=== PATIENT | female | born 2000 | race Caucasian/White ===

== ENCOUNTER 2021-09-09 20:41 | Emergency (ER) | payer OTHER ==
[~2021-09-09] VITALS: Ht 160 cm; Wt 59.0 kg
--- NOTE | 2021-09-09 21:19 | ED GU-Female ---
General Chief Complaint: OB < 20 WEEKS Stated Complaint: 6 WKS PREG - BLEEDING Nursing Triage Note: PT AMBULATE TO ROOM 03 WITH C/O VAGINAL BLEEDING X2 HOURS. PT REPORTS SHE IS X6 WEEKS . PT STATES SHE HAD A DOCTOR'S APPT TODAY AND BLOOD TEST CONFIRMED . Source: patient History of Present Illness Date Seen by Provider: Sep 09, 2021 Time Seen by Provider: 20:55 Initial Comments PT ARRIVES VIA POV FROM HOME STATES SHE IS 6 WEEKS WITH LMP 07/27/22 HAD ROUTINE FIRST VISIT TODAY AND LAB DONE--NO PELVIC EXAM OR ULTRASOUND DONE TODAY BEGAN HAVING VAGINAL BLEEDING 2 HOURS AGO NO CRAMPING NO NAUSEA/VOMITING NO URINARY SYMPTOMS PT HAS NOT USED ANY PADS OR TAMPONS, AND IS NOT WEARING ANYTHING NOW. DENIES FEVER OR RECENT ILLNESS--TEMP IS 99.6 ON ARRIVAL HERE--PT DOES NOT FEEL LIKE SHE HAS FEVER DENIES ANY OTHER SYMPTOMS PT IS NOT VACCINATED FOR COVID-19 OR FLU PCP: [facility] Allergies and Home Medications Allergies Coded Allergies: Penicillins (Verified Allergy, Unknown, 09/09/21) Patient Home Medication List Home Medication List Reviewed: Yes Review of Systems Review of Systems Constitutional: no symptoms reported EENTM: no symptoms reported Respiratory: no symptoms reported Cardiovascular: no symptoms reported Gastrointestinal: no symptoms reported Genitourinary: see HPI : Yes LMP: Jul 27, 2021 Musculoskeletal: no symptoms reported Skin: no symptoms reported Psychiatric/Neurological: No Symptoms Reported Endocrine: No Symptoms Reported Hematologic/Lymphatic: No Symptoms Reported Past Tzroifp-Yhmxvy-[place] Hx Patient Social History Tobacco Use?: No Smoking Status: Never a Smoker Smokeless Tobacco Frequency: Never a User Use of E-Cig and/or Vaping Robert: Never a User Substance use?: No Alcohol Use?: No Pt feels they are or have been: No Past Medical History Last Menstrual Period: Jul 27, 2021 Physical Exam Vital Signs Vital Signs - First Documented 09/09/21 09/09/21 20:46 23:02 Temp 37.6 Pulse 101 Resp 21 B/P (MAP) 124/81 (95) Pulse Ox 100 O2 Delivery Room Air Capillary Refill : Less Than 3 Seconds Height, Weight, BMI Height: '" Weight: lbs. oz. kg; 23.00 BMI Method: General Appearance: WD/WN, no apparent distress, other (WALKS UPRIGHT AND MOVES WITHOUT DIFFICULTY) Cardiovascular: regular rate, rhythm, no edema, no murmur Respiratory: normal breath sounds, no respiratory distress Gastrointestinal: non tender, soft Pelvic: other (NO VAGINAL BLEEDING AT THIS TIME. ) Back: no CVA tenderness Extremities: normal inspection Neurologic/Psychiatric: no motor/sensory deficits, alert, normal mood/affect Skin: normal color, warm/dry Progress/Results/Core Measures Suspected Sepsis SIRS Temperature: Pulse: 101 Respiratory Rate: 21 Laboratory Tests 09/09/21 21:19: White Blood Count 11.4H Blood Pressure 124 /81 Mean: 95 Laboratory Tests 09/09/21 21:19: Platelet Count 317 Results/Orders Lab Results Laboratory Tests Test 09/09/21 21:05 09/09/21 21:19 Range/Units Influenza Type A (RT-PCR) Not Detected Not Detecte Influenza Type B (RT-PCR) Not Detected Not Detecte SARS-CoV-2 RNA (RT-PCR) Not Detected Not Detecte White Blood Count 11.4 H 4.3-11.0 10^3/uL Red Blood Count 4.00 3.80-5.11 10^6/uL Hemoglobin 12.1 11.5-16.0 g/dL Hematocrit 36 35-52 % Mean Corpuscular Volume 90 80-99 fL Mean Corpuscular Hemoglobin 30 25-34 pg Mean Corpuscular Hemoglobin Concent 34 32-36 g/dL Red Cell Distribution Width 11.8 10.0-14.5 % Platelet Count 317 130-400 10^3/uL Mean Platelet Volume 9.8 9.0-12.2 fL Human Chorionic Gonadotropin, Quant 08093 H <5 MIU/ML My Orders Orders - LELE HER DO Cbc No Diff (09/09/21 20:55) Hcg,Quantitative (09/09/21 20:55) Abo Rh Type (09/09/21 20:55) Covid 19 Inhouse Test (09/09/21 20:55) Influenza A And B By Pcr (09/09/21 20:55) Isolation Central Supply Req (09/09/21 20:55) Vital Signs/I&O 09/09/21 09/09/21 20:46 23:02 Temp 37.6 Pulse 101 73 Resp 21 16 B/P (MAP) 124/81 (95) 126/73 Pulse Ox 100 O2 Delivery Room Air Room Air Capillary Refill : Less Than 3 Seconds Blood Pressure Mean: 95 Progress Note : Progress Note PPE WORN COVID-19 TESTING DONE DUE TO TEMP OF 99.6 BLOOD TYPE A+ DID NOT HAVE ANY BLEEDING DURING ER STAY, AND DID NOT WEAR ANY PADS / PANTILINERS OR USE ANY TAMPONS DURING ER STAY PT VOIDED PRIOR TO DISMISSAL AND NO BLOOD AT ALL. ANTICIPATED COURSE REVIEWED WITH PT AND MALE IN ROOM ALSO DISCUSSED NEED FOR RETESTING FOR COVID IN 2-3 DAYS Departure Impression Primary Impression: Threatened in early Additional Impression: Person under investigation for COVID-19 Disposition: HOME, SELF-CARE Condition: Stable Departure-Patient Inst. Decision time for Depature: 22:51 Referrals: DIANE QUINN LISA A MD (PCP/Family) Primary Care Physician Patient Instructions: COVID-19 Tests, Threatened Miscarriage (DC) Add. Discharge Instructions: NOTHING IN VAGINA--NO TAMPONS, DOUCHING OR INTERCOURSE KEEP AN ACCURATE PAD COUNT--RETURN IF SOAKING MORE THAN 1 MAXI PAD AN HOUR TYLENOL NEEDED FOR PAIN--NO ASPIRIN, NO MOTRIN/ADVIL/IBUPROFEN OR ALEVE/NAPROXEN FOLLOW UP WITH DR. QUINN THIS WEEK FOR FURTHER CARE--CALL IN THE MORNING TO SCHEDULE APPOINTMENT QUARANTINE YOURSELF AND CLOSE CONTACTS UNTIL YOU ARE RECHECKED AND CLEARED, AND YOU NEED TO BE RECHECKED FOR COVID IN 2-3 DAYS--YOU MAY GO TO [facility] OR YOUR [facility] DEPARTMENT All discharge instructions reviewed with patient and/or family. Voiced understanding. LELE HER DO Sep 09, 2021 21:19
[2021-09-09 21:37] LABS: HEMATOCRIT 36 % (35-52); HEMOGLOBIN 12.1 g/dL (11.5-16.0); MEAN CORPUSCULAR HEMOGLOBIN 30 pg (25-34); MEAN CORPUSCULAR HGB CONC 34 g/dL (32-36); MEAN CORPUSCULAR VOLUME 90 fL (80-99); MEAN PLATELET VOLUME 9.8 fL (9.0-12.2); PLATELET COUNT 317 10^3/uL (130-400); WHITE BLOOD COUNT 11.4 10^3/uL (4.3-11.0)
[2021-09-09 23:02] VITALS: BP 126/73
== END 2021-09-09 23:02 | disposition home or self-care (01) ==
LOC: EDUNIT# 20:41 → ER 20:43
DX: O20.0 Threatened abortion (principal); Z20.822 Contact with and (suspected) exposure to COVID-19; Z3A.00 Weeks of gestation of pregnancy not specified
CPT/HCPCS: 36415; 84702; 85027; 86900; 86901; 87636; 99283

== ENCOUNTER 2022-05-04 18:46 | Inpatient (IN) | payer OTHER ==
[~2022-05-04] VITALS: Ht 160 cm; Wt 86.5 kg
[2022-05-04] VITALS (14 sets, daily range): BP systolic 141–184; BP diastolic 82–103
[2022-05-04] MEDS ORDERED: LIDOCAINE 1% INJ 20 ML VIAL IJ PRN (19:15)
[2022-05-04] MEDS ORDERED: MINERAL OIL 30 ML UDC TOP PRN (19:15)
[2022-05-04] MEDS ORDERED: TERBUTALINE INJ 1 MG/ML (BRETHINE) AMP SC PRN (19:15)
[2022-05-04] MEDS ORDERED: D5 LR IV SOLUTION 1,000 ML IV SCH (19:15)
[2022-05-04 19:43] LABS: BASOPHILS % (AUTO) 0 % (0-10); EOSINOPHILS # (AUTO) 0.1 10^3/uL (0.0-0.3); EOSINOPHILS % (AUTO) 1 % (0-10); HEMATOCRIT 33 % (35-52); HEMOGLOBIN 11.2 g/dL (11.5-16.0); LYMPHOCYTES # (AUTO) 1.3 10^3/uL (1.0-4.0); LYMPHOCYTES % (AUTO) 15 % (12-44); MEAN CORPUSCULAR HEMOGLOBIN 31 pg (25-34); MEAN CORPUSCULAR HGB CONC 34 g/dL (32-36); MEAN CORPUSCULAR VOLUME 92 fL (80-99); MEAN PLATELET VOLUME 11.3 fL (9.0-12.2); MONOCYTES # (AUTO) 0.9 10^3/uL (0.0-1.0); MONOCYTES % (AUTO) 10 % (0-12); NEUTROPHILS # (AUTO) 6.3 10^3/uL (1.8-7.8); NEUTROPHILS % (AUTO) 72 % (42-75); PLATELET COUNT 233 10^3/uL (130-400); WHITE BLOOD COUNT 8.8 10^3/uL (4.3-11.0)
[2022-05-04] MEDS ORDERED: D5 LR IV SOLUTION 1,000 ML IV ONE (19:51)
[2022-05-04] MEDS ORDERED: CATHETER FLUSH 10 ML SYR IV SCH ×2 (22:00)
[2022-05-04] MEDS ORDERED: hydrALAZINE (APESOLINE) 20 MG/ML VIAL ONE (22:12)
[2022-05-04] MEDS ORDERED: hydrALAZINE (APESOLINE) 20 MG/ML VIAL IV ONE (22:15)
[2022-05-04] MEDS ORDERED: BUTORPHANOL INJ 2 MG/ML (STADOL) VIAL ONE (22:38)
[2022-05-04] MEDS ORDERED: BUTORPHANOL INJ 2 MG/ML (STADOL) VIAL IV ONE (22:45)
[2022-05-04 23:03] LABS: ALBUMIN 3.3 GM/DL (3.2-4.5); POTASSIUM 2.8 MMOL/L (3.6-5.0)
[2022-05-04 23:04] LABS: CALCIUM 9.2 MG/DL (8.5-10.1)
[2022-05-04 23:07] LABS: BILIRUBIN,TOTAL 0.3 MG/DL (0.1-1.0)
[2022-05-04 23:09] LABS: CREATININE SERUM 0.64 MG/DL (0.60-1.30)
[2022-05-04 23:12] LABS: URIC ACID 3.5 MG/DL (2.6-7.2)
[2022-05-04 23:16] LABS: URINE CREATININE FOR RATIO 20 MG/DL (30-125)
[2022-05-04 23:17] LABS: URINE PROTEIN FOR RATIO ONLY < 6 MG/DL (6-12)
[2022-05-05] VITALS (34 sets, daily range): BP systolic 128–177; BP diastolic 67–103
[2022-05-05] MEDS ORDERED: fentaNYL 2 mcg/ml BUPIVA 0.125 100 ML ONE (00:02)
[2022-05-05] MEDS ORDERED: fentaNYL INJ 100 MCG/2 ML AMP ONE (00:45)
[2022-05-05] MEDS ORDERED: LIDOCAINE PF 2% 5 ML (XYLOCAINE) VIAL ONE (00:45)
[2022-05-05] MEDS ORDERED: BUPIVACAINE 0.25% 30 ML (SENSORCAINE) VIAL ONE (00:45)
[2022-05-05] MEDS ORDERED: fentaNYL 2 mcg/ml BUPIVA 0.125 100 ML EPI SCH (01:30)
[2022-05-05] MEDS ORDERED: METOCLOPRAMIDE INJ 10 MG/2 ML (REGLAN) IV PRN (01:30)
[2022-05-05] MEDS ORDERED: diphenhydrAMINE 50 MG/ML INJ (BENADRYL) IV PRN (01:30)
[2022-05-05] MEDS ORDERED: ONDANSETRON 4 MG/2 ML (SDV) Z0FRAN IV PRN (01:30)
[2022-05-05] MEDS ORDERED: NALOXONE 0.4 MG/ML 1 ML (NARCAN) VIAL IV PRN ×2 (01:30)
[2022-05-05] MEDS ORDERED: LACTATED RINGERS 1,000 ML IV SCH (01:30)
[2022-05-05] MEDS ORDERED: OXYTOCIN PRE-MIX DRIP 500 ML IV ONE ×2 (03:24→06:32)
[2022-05-05] MEDS ORDERED: LIDOCAINE 1% INJ 10 ML VIAL ONE ×2 (03:26→05:52)
--- NOTE | 2022-05-05 04:22 | History & Physical-OB ---
OB - Chief Complaint & HPI Date/Time Date of Admission: Date of Admission: May 04, 2022 at 18:46 Date seen by a Provider: May 05, 2022 Time Seen by a Provider: 04:00 Chief Complaint/History OB-Reason for Admission/Chief: Induction of Labor Hx : 1 Expected Date of Delivery: May 01, 2022 Gestational Age in Weeks: 40 Gestational Age in Days: 3 History of Labs A+, Ab neg, Rub Imm HIV/RPR/HepB/C NR Normal 1hr GTT GBS neg Allergies and Home Medications Allergies Coded Allergies: Penicillins (Verified Allergy, Unknown, 09/09/21) Patient Home Medication List Home Medication List Reviewed: Yes OB - History Hx of Present Care: Yes Ultrasounds: Normal mid trimester US Obstetrical Complications: None Medical Complications: None Obstetrical History Hx : 1 Patient Past Medical History N/a Social History/Family History Alcohol Use: Denies Use Smoking Cessation: Never smoker Immunizations Influenza Vaccine Up-to-Date: No; Not Current Tetanus Booster (TDap): Less than 5yrs (02/25/22) Rubella: immune RPR/VDRL: Negative GBS Status: Negative HBsAG: Negative OB - Admission Exam Physical Exam Vitals: Vital Signs 05/04/22 05/05/22 20:04 02:30 Temp 36.5 Pulse 71 Resp 18 B/P (MAP) 142/92 (109) Pulse Ox 97 O2 Delivery Room Air HEENT: NCAT Heart: Rhythm Normal Lungs: Clear Abdomen: Gravid Cervical Dilatation: 9cm Effacement: 100% Station: 0 Membranes: Ruptured Amniotic Fluid: Clear Heart Rate: 130's Accelerations: Accelerations Present Decelerations: Variable Decelerations Short Term Variability: Present Assistant Branch Operations Manager Variability: Average (6-25) Contractions on Admission: < 5 Minutes Apart Angel Scoring Tool (Modified) Dilation (cm): 3-4cm (2) Effacement (%): 51-79% (2) Descent/Station: -2 (1) Cervix Consistency: Medium(1) Cervix Position: Anterior (2) Angel Score: 8 Labs Laboratory Tests Test 05/04/22 19:25 Range/Units White Blood Count 8.8 4.3-11.0 10^3/uL Red Blood Count 3.59 L 3.80-5.11 10^6/uL Hemoglobin 11.2 L 11.5-16.0 g/dL Hematocrit 33 L 35-52 % Mean Corpuscular Volume 92 80-99 fL Mean Corpuscular Hemoglobin 31 25-34 pg Mean Corpuscular Hemoglobin Concent 34 32-36 g/dL Red Cell Distribution Width 12.8 10.0-14.5 % Platelet Count 233 130-400 10^3/uL Mean Platelet Volume 11.3 9.0-12.2 fL Immature Granulocyte % (Auto) 2 % Neutrophils (%) (Auto) 72 42-75 % Lymphocytes (%) (Auto) 15 12-44 % Monocytes (%) (Auto) 10 0-12 % Eosinophils (%) (Auto) 1 0-10 % Basophils (%) (Auto) 0 0-10 % Neutrophils # (Auto) 6.3 1.8-7.8 10^3/uL Lymphocytes # (Auto) 1.3 1.0-4.0 10^3/uL Monocytes # (Auto) 0.9 0.0-1.0 10^3/uL Eosinophils # (Auto) 0.1 0.0-0.3 10^3/uL Basophils # (Auto) 0.0 0.0-0.1 10^3/uL Immature Granulocyte # (Auto) 0.2 H 0.0-0.1 10^3/uL Urine Protein < 6 L 6-12 MG/DL Urine Creatinine 20 L 30-125 MG/DL Urine Protein/Creatinine Ratio Sodium Level 139 135-145 MMOL/L Potassium Level 2.8 L 3.6-5.0 MMOL/L Chloride Level 107 98-107 MMOL/L Carbon Dioxide Level 20 L 21-32 MMOL/L Anion Gap 12 5-14 MMOL/L Blood Urea Nitrogen 5 L 7-18 MG/DL Creatinine 0.64 0.60-1.30 MG/DL Estimat Glomerular Filtration Rate 127 BUN/Creatinine Ratio 8 Glucose Level 89 70-105 MG/DL Uric Acid 3.5 2.6-7.2 MG/DL Calcium Level 9.2 8.5-10.1 MG/DL Corrected Calcium 9.8 8.5-10.1 MG/DL Total Bilirubin 0.3 0.1-1.0 MG/DL Aspartate Amino Transf (AST/SGOT) 18 5-34 U/L Alanine Aminotransferase (ALT/SGPT) 14 0-55 U/L Alkaline Phosphatase 86 40-136 U/L Lactate Dehydrogenase 216 125-220 U/L Total Protein 6.0 L 6.4-8.2 GM/DL Albumin 3.3 3.2-4.5 GM/DL OB - Assessment/Plan/Diagnosis Assessment Assessment: induction of labor Admission Dx Third Trimester 40 week gestation Admission Status: Inpatient Order (span 2 midnights) Reason for Inpatient Admission: Labor and post care Plan Plan: Induction Other Plan 22 yo G1 @ 40.3 wga here for IOL - Cytotect protocol - SROM 0315 clear - Expectant management - GBS neg - Epidural in place for pain control Copy Copies To 1: MONSTER SOSA MD, HOLLY R MD May 05, 2022 04:22
--- NOTE | 2022-05-05 06:30 | OB Labor & Delivery Record ---
Vag Delivery Note Vag Delivery Note Date of Delivery: 05/05/22 Preoperative Diagnosis: Jerica Luz is a (22 /Para 1/0 ,Gestational Age (wks)40.4 here for elective IOL Postoperative Diagnosis: Same Surgeon: MONSTER SOSA MD Furniture Sales Consultant: None Anesthesia: Epidural Delivery Type: @ 0526 Findings: Viable female , apgars 9/9, weight Lacerations: bilateral periurethral lacerations Intact placenta with 3 vessel cord. No nuchal cord, body cord or shoulder dystocia Estimated Blood Loss: 150 ml Complications: None Condition: Stable Description of Procedure: The patient is a 22 year old female who presented for IOL. She was admitted and informed consent was obtained. Her labor course was unremarkable. She progressed to complete dilatation and began to push. She was then set up for delivery. The 's head was delivered atraumatically in the FREEDOM position. The shoulders and remainder of the infant's body were then delivered without difficulty. Upon delivery, the head was held below the level of the perineum and the mouth and nares were bulb suctioned. The cord was doubly clamped and cut by FOB after 5 min delay and the was attended to by the pediatric staff on materna abdomen. An intact placenta with 3-vessel cord delivered via Sarahi and there was found to be minimal bleeding.~ Vigorous fundal massage was performed and the fundus was found to be firm. IV oxytocin was given. Examination of the vagina and perineum revealed bilateral cain urethral lacerations repaired in the usual fashion with 3-0 vicryl suture. Following the repair, sponge, instrument and needle counts were correct. Mom and baby were both in stable condition in the labor suite. Vitals - Labs Vital Signs - I&O Vital Signs Date Time Temp Pulse Resp B/P (MAP) Pulse Ox O2 Delivery O2 Flow Rate FiO2 05/05/22 04:02 77 18 177/97 (123) 100 Room Air 05/05/22 03:40 84 18 154/89 (110) 98 Room Air 05/05/22 03:33 81 18 174/97 (122) 97 Room Air 05/05/22 03:16 81 18 153/97 (115) 99 Room Air 05/05/22 03:03 86 18 148/99 (115) 100 Room Air 05/05/22 02:46 101 18 142/93 (109) 100 Room Air 05/05/22 02:30 71 18 142/92 (109) 97 Room Air 05/05/22 02:13 76 18 134/87 (103) 97 Room Air 05/05/22 02:01 74 18 137/86 (103) 97 Room Air 05/05/22 01:48 77 18 129/82 (98) 99 Room Air 05/05/22 01:30 82 18 140/84 (102) 98 Room Air 05/05/22 01:24 81 18 139/83 (101) 98 Room Air 05/05/22 01:19 79 18 141/86 (104) 98 Room Air 05/05/22 01:14 99 18 136/81 (99) 97 Room Air 05/05/22 01:09 97 18 145/91 (109) 97 Room Air 05/05/22 01:03 93 18 158/98 (118) 97 Room Air 05/05/22 00:59 83 18 163/100 (121) 97 Room Air 05/05/22 00:47 92 18 164/103 (123) 98 Room Air 05/05/22 00:13 80 18 163/94 (117) 96 Room Air 05/04/22 23:57 79 18 149/96 (113) 99 Room Air 05/04/22 23:42 80 18 153/99 (117) 99 Room Air 05/04/22 23:26 71 18 146/91 (109) 99 Room Air 05/04/22 23:12 70 18 148/85 (106) 96 Room Air 05/04/22 22:57 74 18 154/86 (108) 96 Room Air 05/04/22 22:42 71 18 172/99 (123) 97 Room Air 05/04/22 22:27 79 18 159/95 (116) Room Air 05/04/22 22:13 70 18 184/103 (130) Room Air 05/04/22 21:57 67 18 171/82 (111) Room Air 05/04/22 21:44 67 18 174/94 (120) Room Air 05/04/22 21:26 67 18 157/96 (116) Room Air 05/04/22 21:17 69 18 176/102 (126) Room Air 05/04/22 20:23 77 18 147/86 (106) Room Air 9/12/22 20:04 36.5 76 18 98 Room Air Labs Laboratory Tests 05/04/22 19:25: White Blood Count 8.8, Red Blood Count 3.59L, Hemoglobin 11.2L, Hematocrit 33L, Mean Corpuscular Volume 92, Mean Corpuscular Hemoglobin 31, Mean Corpuscular Hemoglobin Concent 34, Red Cell Distribution Width 12.8, Platelet Count 233, Mean Platelet Volume 11.3, Immature Granulocyte % (Auto) 2, Neutrophils (%) (Auto) 72, Lymphocytes (%) (Auto) 15, Monocytes (%) (Auto) 10, Eosinophils (%) (Auto) 1, Basophils (%) (Auto) 0, Neutrophils # (Auto) 6.3, Lymphocytes # (Auto) 1.3, Monocytes # (Auto) 0.9, Eosinophils # (Auto) 0.1, Basophils # (Auto) 0.0, Immature Granulocyte # (Auto) 0.2H, Urine Protein < 6L, Urine Creatinine 20L, Urine Protein/Creatinine Ratio , Sodium Level 139, Potassium Level 2.8L, Chloride Level 107, Carbon Dioxide Level 20L, Anion Gap 12, Blood Urea Nitrogen 5L, Creatinine 0.64, Estimat Glomerular Filtration Rate 127, BUN/Creatinine Ratio 8, Glucose Level 89, Uric Acid 3.5, Calcium Level 9.2, Corrected Calcium 9.8, Total Bilirubin 0.3, Aspartate Amino Transf (AST/SGOT) 18, Alanine Aminotransferase (ALT/SGPT) 14, Alkaline Phosphatase 86, Lactate Dehydrogenase 216, Total Protein 6.0L, Albumin 3.3 MONSTER SOSA MD May 05, 2022 06:30
[2022-05-05] MEDS ORDERED: BENZOCAINE/MENTHOL (DERMOPLAST) 56 ML CAN TP PRN (06:45)
[2022-05-05] MEDS ORDERED: OXYTOCIN PRE-MIX DRIP 500 ML IV SCH (06:45)
[2022-05-05] MEDS ORDERED: WITCH HAZEL(TUCKS) 40 EA JAR TOP PRN (06:45)
[2022-05-05] MEDS: ACETAMINOPHEN 500 MG TAB (TYLENOL) PO SCH ×4 (07:04→23:47)
[2022-05-05] MEDS: IBUPROFEN 600 MG (MOTRIN) TAB PO SCH ×4 (07:05→23:47)
[2022-05-05] MEDS: DOCUSATE SODIUM 100 MG (COLACE) CAP PO SCH ×2 (09:16→21:01)
--- NOTE | 2022-05-05 13:34 | Anesthesia-Regional Post-Op ---
Regional Patient Condition Mental Status: Alert, Oriented x3 Circulation: Same as Pre-Op Headache: Absent Sensation: Full Recovery Motor Block: Absent Post Op Complications Complications None Follow Up Care/Instructions Patient Instructions None needed. Anesthesia/Patient Condition Patient is doing well, no complaints, stable vital signs, no apparent adverse anesthesia problems. No complications reported per nursing. DEBORAH WAGGONER CRNA May 05, 2022 13:34
[2022-05-05] MEDS ORDERED: CATHETER FLUSH 10 ML SYR IV SCH (14:00)
[2022-05-05] MEDS ORDERED: IBUP-844 PO (21:10)
[2022-05-06 05:30] LABS: BASOPHILS # (AUTO) 0.1 10^3/uL (0.0-0.1); BASOPHILS % (AUTO) 0 % (0-10); EOSINOPHILS # (AUTO) 0.2 10^3/uL (0.0-0.3); EOSINOPHILS % (AUTO) 2 % (0-10); HEMATOCRIT 27 % (35-52); HEMOGLOBIN 9.4 g/dL (11.5-16.0); LYMPHOCYTES # (AUTO) 1.9 10^3/uL (1.0-4.0); LYMPHOCYTES % (AUTO) 15 % (12-44); MEAN CORPUSCULAR HEMOGLOBIN 32 pg (25-34); MEAN CORPUSCULAR HGB CONC 35 g/dL (32-36); MEAN CORPUSCULAR VOLUME 92 fL (80-99); MEAN PLATELET VOLUME 10.8 fL (9.0-12.2); MONOCYTES % (AUTO) 7 % (0-12); NEUTROPHILS # (AUTO) 9.9 10^3/uL (1.8-7.8); NEUTROPHILS % (AUTO) 75 % (42-75); PLATELET COUNT 162 10^3/uL (130-400); WHITE BLOOD COUNT 13.3 10^3/uL (4.3-11.0)
[2022-05-06 05:56] VITALS: BP 121/81
[2022-05-06] MEDS: IBUPROFEN 600 MG (MOTRIN) TAB PO SCH ×2 (05:58→12:06)
[2022-05-06] MEDS: ACETAMINOPHEN 500 MG TAB (TYLENOL) PO SCH ×2 (05:58→12:06)
[2022-05-06] MEDS ORDERED: DOCU100C37 PO (06:53)
[2022-05-06] MEDS ORDERED: FERR325T24 PO (06:53)
[2022-05-06] MEDS ORDERED: FERROUS SULF 325 MG (IRON) TAB PO SCH (07:00)
[2022-05-06] MEDS: DOCUSATE SODIUM 100 MG (COLACE) CAP PO SCH (10:11)
[2022-05-06 10:15] VITALS: BP 132/85
--- NOTE | 2022-05-06 10:54 | Discharge Summary ---
Discharge Summary Hospital Course Hospital Course Date of Admission: May 04, 2022 at 18:46 Admission Diagnosis : Term intrauterine at 40+ weeks of gestation Induction of labor Family Physician/Provider: Joann Hoffmann MD Date of Discharge: 05/06/22 Discharge Diagnosis: s/p spontaneous vaginal delivery Gestational hypertension acute blood loss anemia Hospital Course: G1 at 40w3d presented for scheduled IOL and had elevated blood pressure, preeclampsia labs negative. Had blood pressure treated x 1. Uncomplicated vaginal delivery, blood pressure remained elevated for a few hours after delivery and then normalized. Labs and Pending Lab Test: Laboratory Tests 05/06/22 05:23: White Blood Count 13.3H, Red Blood Count 2.93L, Hemoglobin 9.4L, Hematocrit 27L, Mean Corpuscular Volume 92, Mean Corpuscular Hemoglobin 32, Mean Corpuscular Hemoglobin Concent 35, Red Cell Distribution Width 13.0, Platelet Count 162, Mean Platelet Volume 10.8, Immature Granulocyte % (Auto) 2, Neutrophils (%) (Auto) 75, Lymphocytes (%) (Auto) 15, Monocytes (%) (Auto) 7, Eosinophils (%) (Auto) 2, Basophils (%) (Auto) 0, Neutrophils # (Auto) 9.9H, Lymphocytes # (Auto) 1.9, Monocytes # (Auto) 1.0, Eosinophils # (Auto) 0.2, Basophils # (Auto) 0.1, Immature Granulocyte # (Auto) 0.2H Home Meds Active Docusate Sodium 100 Mg Capsule 100 Mg PO BID PRN Ferosul (Ferrous Sulfate) 325 Mg (65 Mg Iron) Tablet 325 Mg PO DAILY@0700 Ibu (Ibuprofen) 600 Mg Tablet 600 Mg PO Q6H PRN Assessment/Pt DC Instructions Follow up with Dr. Galeas in 6 weeks for visit. Discharge Diet: No Restrictions Activity as Tolerated: Yes (avoid strenuous activity x 6 weeks) Discharge Physical Examination Allergies: Coded Allergies: Penicillins (Verified Allergy, Unknown, 09/09/21) General Appearance: No Apparent Distress, WD/WN Respiratory: Lungs Clear, Normal Breath Sounds Cardiovascular: Regular Rate, Rhythm, No Edema, No Murmur Extremity: No Pedal Edema Skin: Normal Color, Warm/Dry Neurologic/Psychiatric: Alert, Normal Mood/Affect Copy Copies To 1: MONSTER GALEAS MD, BETHANY N MD May 06, 2022 10:54
== END 2022-05-06 15:15 | disposition home or self-care (01) | DRG 806 ==
LOC: LDRP 18:46
PROVIDERS: ADMIT Family Medicine; ATTEND Family Medicine
PROC: 3E0DXGC Introduction of Other Therapeutic Substance into Mouth and Pharynx, External Approach (ICD-10-PCS; 2022-05-04)
PROC: 10E0XZZ Delivery of Products of Conception, External Approach (ICD-10-PCS; principal; 2022-05-05)
PROC: 0UQMXZZ Repair Vulva, External Approach (ICD-10-PCS; 2022-05-05)
DX: O48.0 Post-term pregnancy (principal); D62 Acute posthemorrhagic anemia; Z37.0 Single live birth; O90.81 Anemia of the puerperium; O13.4 Gestational [pregnancy-induced] hypertension without significant proteinuria, complicating childbirth; Z3A.40 40 weeks gestation of pregnancy; O71.82 Other specified trauma to perineum and vulva
CPT/HCPCS: 36415; 80053; 82570; 83615; 84156; 84550; 85025; 86780; 86850; 86900; 86901